=== PATIENT | male | born 1935 | race Caucasian/White ===

== ENCOUNTER 2018-08-10 13:19 | Outpatient (CLI) | payer MEDICARE | END 2018-08-10 13:20 | disposition home or self-care (01) | LOC: ULT 13:19 | PROVIDERS: ATTEND Family Medicine | DX: R01.1 Cardiac murmur, unspecified (principal); I08.3 Combined rheumatic disorders of mitral, aortic and tricuspid valves | CPT/HCPCS: 93306 ==